=== PATIENT | male | born 1985 | race Caucasian/White ===

== ENCOUNTER 2018-01-21 07:46 | Emergency (ER) | payer MEDICAID ==
[~2018-01-21] VITALS: Ht 182.9 cm; Wt 83.0 kg
[~2018-01-21 07:46] MED LIST: ALBU8HFA PO; CYCL-1 PO; IBUP-1573 PO; MECL-111 PO; PSEU-259 PO; [UNRECOGNIZED DRUG - CODE] PO
[2018-01-21 07:52] VITALS: BP 123/83
[2018-01-21] MEDS ORDERED: ALBU18HF2 INH (08:18)
[2018-01-21] MEDS ORDERED: ipratropium/albuterol 3ml nebule NEB ONE (08:20)
== END 2018-01-21 09:18 | disposition home or self-care (01) ==
LOC: ER 07:47
DX: J20.9 Acute bronchitis, unspecified (principal); Z56.0 Unemployment, unspecified; Z79.899 Other long term (current) drug therapy
CPT/HCPCS: 94640; 94760; 99283

== ENCOUNTER 2018-03-20 11:37 | Outpatient (CLI) | payer MEDICAID ==
[~2018-03-20 11:37] MED LIST changes: +ALBU18HF2 INH
== END 2018-03-20 23:59 | disposition home or self-care (01) ==
LOC: RAD 11:37
DX: G40.89 Other seizures (principal); Z87.898 Personal history of other specified conditions; Z87.891 Personal history of nicotine dependence
CPT/HCPCS: 95819

== ENCOUNTER 2018-04-14 09:44 | Emergency (ER) | payer MEDICAID ==
[~2018-04-14] VITALS: Ht 182.9 cm; Wt 81.8 kg
[2018-04-14 09:47] VITALS: BP 169/81
[2018-04-14 10:11] LABS: CLARITY,URINE CLEAR (Clear); COLOR,URINE ORANGE (Yellow)
[2018-04-14 10:21] LABS: UA COLLECTION TYPE VOIDED
[2018-04-14 10:24] LABS: BACTERIA,URINE NONE SEEN /HPF (Neg); MUCUS STRANDS NONE SEEN /LPF (Neg); RBC,URINE NONE SEEN /HPF (0-2); SQUAMOUS EPITHELIAL CELL,UR NONE SEEN /LPF (FEW); WBC,URINE 0-4 /HPF (0-4)
[2018-04-14] MEDS ORDERED: CefTRIAXone 250MG IM Kit w/LIDOcaine IM ONE (10:25)
[2018-04-14] MEDS ORDERED: ondansetron 4mg rapidly disintigrating tab PO ONE (10:25)
[2018-04-14] MEDS ORDERED: azithromycin 250mg tablet PO ONE (10:25)
== END 2018-04-14 11:01 | disposition home or self-care (01) ==
LOC: ER 09:44
DX: N34.2 Other urethritis (principal); F17.210 Nicotine dependence, cigarettes, uncomplicated; Z79.899 Other long term (current) drug therapy; Z56.0 Unemployment, unspecified
CPT/HCPCS: 81001; 96372; 99283; J0696

== ENCOUNTER 2019-06-14 13:50 | Emergency (ER) | payer MEDICAID ==
[~2019-06-14] VITALS: Ht 182.9 cm; Wt 95.5 kg
[2019-06-14 14:08] VITALS: BP 159/104
[2019-06-14] MEDS ORDERED: AZIT250T83 PO (15:22)
[2019-06-14] MEDS ORDERED: PRED20TA PO (15:22)
== END 2019-06-14 15:42 | disposition home or self-care (01) ==
LOC: ER 13:50
DX: J02.9 Acute pharyngitis, unspecified (principal); F10.99 Alcohol use, unspecified with unspecified alcohol-induced disorder; Z86.69 Personal history of other diseases of the nervous system and sense organs; Z56.0 Unemployment, unspecified; Z79.899 Other long term (current) drug therapy; Y90.9 Presence of alcohol in blood, level not specified
CPT/HCPCS: 99283

== ENCOUNTER 2020-07-06 12:42 | Emergency (ER) | payer MEDICAID ==
[~2020-07-06] VITALS: Ht 182.9 cm; Wt 89.5 kg
[~2020-07-06 12:42] MED LIST changes: -MECL-111 PO; +MECL-159 PO
[2020-07-06 12:59] VITALS: BP 123/86
== END 2020-07-06 14:45 | disposition left against medical advice (07) ==
LOC: ER 12:43
DX: S50.312A Abrasion of left elbow, initial encounter (principal); Z53.21 Procedure and treatment not carried out due to patient leaving prior to being seen by health care provider; W18.39XA Other fall on same level, initial encounter; Y93.51 Activity, roller skating (inline) and skateboarding; Y92.89 Other specified places as the place of occurrence of the external cause; Y99.8 Other external cause status

== ENCOUNTER 2025-11-05 13:49 | Outpatient (CLI) | payer MEDICAID ==
[~2025-11-05 13:49] MED LIST changes: -MECL-159 PO; +MECL-302 PO; +iohexol 300mg/ml 100ml inj. ONE
--- NOTE | 2025-11-05 15:20 | RADIOLOGY REPORT ---
EXAM: CT CT LUMBAR SPINE W/WO IV CONTRAST INDICATION: LOW BACK PAIN, UNSPECIFIED COMPARISON: None TECHNIQUE: Multiple axial CT images of the lumbar spine were obtained using bone algorithm. Axial and coronal reformatting was done. Bone and soft tissue windows were reviewed. Radiation Dose Information: CT Dose: CTDI volume is 21 mGy. Dose-length product is 693 mGy*cm FINDINGS: Normal bony alignment. Lumbar vertebrae normal in height Disc spaces preserved. On transaxial images no significant narrowing of the central canal and neural foramina. Facet joints are smooth. Sacroiliac joints are smooth. No paravertebral soft tissue masses IMPRESSION: 1. No bony or soft tissue pathology 2. Radiation optimization: All CT scans at this facility use at least one of these dose optimization techniques: automated exposure control mA and/or kV adjustment per patient size (includes targeted exams where dose is matched to clinical indication) or iterative reconstruction.
== END 2025-11-05 23:59 | disposition home or self-care (01) ==
LOC: RAD 13:49
PROVIDERS: ATTEND Family Medicine
DX: M54.50 Low back pain, unspecified (principal)
CPT/HCPCS: 72133; Q9967